=== PATIENT | female | born 1980 | race American Indian/Alaskan Native ===

== ENCOUNTER 2018-10-01 13:43 | Emergency (ER) | payer SELFPAY ==
[2018-10-01 13:50] VITALS: BP 153/86
[2018-10-01] MEDS ORDERED: TESSALON PERLES PO ONE (16:21)
--- NOTE | 2018-10-01 16:25 | Emergency Department Report ---
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 Patient reports cough is nonproductive. Past medical history of hypertension and asthma. Patient states she has been without an inhaler for years. She only have a flare door when her mother's. She normally don't wheeze with asthma flare. She normally becomes short of breath and incr eased coughing. 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 She denies fever, rhinorrhea, chest pain, myalgia, or abdominal pain. ED Review of Systems ROS: Stated complaint: ASTHMA/CHEST PAIN Other details as noted in HPI Constitutional: denies: chills, fever ENT: denies: ear pain, throat pain, congestion Respiratory: cough. denies: shortness of breath, wheezing Cardiovascular: denies: chest pain, palpitations Gastrointestinal: denies: abdominal pain, nausea, diarrhea Musculoskeletal: denies: myalgia Neurological: denies: headache, weakness, paresthesias Psychiatric: denies: anxiety, depression ED Past Medical Hx - Past Medical History Previous Medical History?: Yes Hx Hypertension: Yes Hx Asthma: Yes Additional medical history: anemia. kidney issue? - Surgical History Past Surgical History?: Yes Additional Surgical History: tubal ligation - Social History Smoking Status: Never Smoker Substance Use Type: None - Medications Home Medications: Home Medications Medication Instructions Recorded Confirmed Last Taken Type HYDROcodone/APAP 5-325 [[place] 1 - 2 each PO Q6HR PRN #10 tablet 07/14/18 Unknown Rx 5/325] Ibuprofen [Motrin 800 MG tab] 800 mg PO Q8HR PRN #20 tablet 07/14/18 Unknown Rx Metaxalone [Skelaxin] 800 mg PO TID #10 tablet 07/14/18 Unknown Rx ALBUTEROL Inhaler(NF) [VENTOLIN 1 puff IH Q4-6H PRN #1 inha 10/01/18 Unknown Rx Inhaler(NF)] Benzonatate [Tessalon Perle] 100 mg PO TID PRN #30 capsule 10/01/18 Unknown Rx Prednisone [predniSONE 10 mg 10 mg PO .TAPER #1 tab.ds.pk 10/01/18 Unknown Rx (6-Day Pack, 21 Tabs)] Minor Respiratory Exam - Exam General: Vital signs noted. No distress. Alert and acting appropriately. HEENT: Yes Moist Mucous Membranes, No Pharyngeal Erythema, No Pharyngeal Exudates, No Rhinorrhea, No Conjuctival Injection, No Frontal Tenderness, No Maxillary Tenderness Ear: Neither TM Bulge, Neither TM Erythema, Neither EAC Pain, Neither EAC Discharge Neck: Yes Supple, No Adenopathy Lungs: Yes Good Air Exchange, Yes Cough, No Wheezes, No Ronchi, No Stridor, No Labored Respirations, No Retractions, No Use of Accessory Muscles, No Other Abnormal Lung Sounds Heart: Yes Regular, No Murmur Abdomen: Yes Normal Bowel Sounds, No Tenderness, No Peritoneal Signs Skin: No Rash, No Edema Neurologic: Alert and oriented, no deficits. Musculoskeletal: Unremarkable. ED Course Vital Signs 10/01/18 13:47 Temperature 97.5 F L Pulse Rate 97 H Respiratory 22 Rate Blood Pressure 153/86 O2 Sat by Pulse 100 Oximetry ED Medical Decision Making - Radiology Data Radiology results: report reviewed FINAL REPORT EXAM: XR CHEST ROUTINE 2V HISTORY: cough COMPARISON: None. TECHNIQUE: Frontal and lateral views of the chest. FINDINGS: The cardiomediastinal silhouette is normal in appearance. The lungs are clear without focal consolidation. There is no pleural effusion or pneumothorax. There is no acute soft tissue or osseous abnormality. IMPRESSION: No acute cardiopulmonary disease. - Medical Decision Making 38 y.o. female that presents with a cough for 2 months. History of Asthma and HTN. Noncompliant with medication. She ran out of albuterol inhaler years ago due to cost. Patient examined by me and in no distress. Vitals stable. Given duoneb treatment once and prednisone 60 mg po once in ER. Chest x-ray obtained and dictated by radiologist. No acute cardiopulmonary disease. Asthma exacerbation, Start albuterol, benzonatate, and prednisone taper. Discharged home stable. Follow-up with outside medical clinic or [facility] clinic for further refills. Return to work tomorrow. Critical care attestation.: If time is entered above; I have spent that time in minutes in the direct care of this critically ill patient, excluding procedure time. ED Disposition Clinical Impression: Cough in adult Asthma exacerbation Qualifiers: Asthma severity: mild Asthma persistence: intermittent Qualified Code(s): J45.21 - Mild intermittent asthma with (acute) exacerbation Disposition: TO HOME OR SELFCARE Is pt being admited?: No Does the pt Need Aspirin: No Condition: Stable Instructions: Asthma (ED) Additional Instructions: It is important to use inhaler or have active albuterol inhaler and avoiding asthma triggers. Complete full course of prednisone steroids as prescribed. Follow up with Primary Care Provider in 24-72 hours. Prescriptions: ALBUTEROL Inhaler(NF) [VENTOLIN Inhaler(NF)] 1 puff IH Q4-6H PRN #1 inha PRN Reason: Shortness Of Breath Benzonatate [Tessalon Perle] 100 mg PO TID PRN #30 capsule PRN Reason: Cough Prednisone [predniSONE 10 mg (6-Day Pack, 21 Tabs)] 10 mg PO .TAPER #1 tab.ds.pk Referrals: [facility] [Outside] - 3-5 Days [facility] [Outside] - 3-5 Days [facility] [Outside] - 3-5 Days Forms: Work/School Release Form(ED) Time of Disposition: 17:21
--- NOTE | 2018-10-01 17:04 | XRay Report ---
FINAL REPORT EXAM: XR CHEST ROUTINE 2V HISTORY: cough COMPARISON: None. TECHNIQUE: Frontal and lateral views of the chest. FINDINGS: The cardiomediastinal silhouette is normal in appearance. The lungs are clear without focal consolidation. There is no pleural effusion or pneumothorax. There is no acute soft tissue or osseous abnormality. IMPRESSION: No acute cardiopulmonary disease.
[2018-10-01] MEDS ORDERED: DELTASONE PO ONE (17:14)
== END 2018-10-01 18:00 | disposition home or self-care (01) ==
LOC: ED 13:43
DX: J45.901 Unspecified asthma with (acute) exacerbation (principal); I10 Essential (primary) hypertension; Z88.5 Allergy status to narcotic agent; Z88.1 Allergy status to other antibiotic agents; Z86.2 Personal history of diseases of the blood and blood-forming organs and certain disorders involving the immune mechanism; Z98.51 Tubal ligation status
CPT/HCPCS: 71046; 99283; J7512

== ENCOUNTER 2018-11-17 10:50 | Emergency (ER) | payer OTHER ==
[2018-11-17] MEDS ORDERED: TORADOL IM ONE (12:33)
[2018-11-17] MEDS ORDERED: VALIUM PO ONE (12:34)
--- NOTE | 2018-11-17 12:35 | Emergency Department Report ---
HPI - General Chief Complaint: Back Pain/Injury Time Seen by Provider: 11/17/18 12:27 - HPI HPI: 38-year-old -[place] female presents to the emergency department with a complaint of a few days of low back pain. 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 She denies any midline pain. She denies any problems with bowel or bladder, numbness or paresthesias or any neurological deficits. She herself says that it feels like a muscle spasm. She was given some ibuprofen at work with some mild relief but woke up very stiff. She is able to ambulate. S he denies any other past medical history. ED Past Medical Hx - Past Medical History Hx Hypertension: Yes Hx Asthma: Yes Additional medical history: anemia. kidney issue? - Surgical History Additional Surgical History: tubal ligation - Social History Smoking Status: Never Smoker Substance Use Type: None - Medications Home Medications: Home Medications Medication Instructions Recorded Confirmed Last Taken Type HYDROcodone/APAP 5-325 [[place] 1 - 2 each PO Q6HR PRN #10 tablet 07/14/18 Unknown Rx 5/325] Metaxalone [Skelaxin] 800 mg PO TID #10 tablet 07/14/18 Unknown Rx RX: Ibuprofen [Motrin 800 MG tab] 800 mg PO Q8HR PRN #20 tablet 07/14/18 Unknown Rx Prednisone [predniSONE 10 mg 10 mg PO .TAPER #1 tab.ds.pk 10/01/18 Unknown Rx (6-Day Pack, 21 Tabs)] RX: ALBUTEROL Inhaler(NF) 1 puff IH Q4-6H PRN #1 inha 10/01/18 Unknown Rx [VENTOLIN Inhaler(NF)] RX: Benzonatate [Tessalon Perle] 100 mg PO TID PRN #30 capsule 10/01/18 Unknown Rx diazePAM TAB [Valium] 5 mg PO TID PRN #10 tablet 11/17/18 Unknown Rx ED Review of Systems ROS: Stated complaint: BACK PAIN Other details as noted in HPI Comment: All other systems reviewed and negative Constitutional: denies: chills, fever Eyes: denies: eye pain, vision change ENT: denies: ear pain, throat pain Respiratory: denies: cough, shortness of breath Cardiovascular: denies: chest pain, palpitations Gastrointestinal: denies: abdominal pain, vomiting Genitourinary: denies: dysuria, discharge Musculoskeletal: back pain. denies: arthralgia Skin: denies: rash, lesions Neurological: denies: headache, numbness, paresthesias Physical Exam - Physical Exam Vital Signs: Vital Signs 11/17/18 10:53 Temperature 98.1 F Pulse Rate 130 H Respiratory 98 H Rate Physical Exam: GENERAL: The patient is well-developed well-nourished. HEENT: Normocephalic. Atraumatic. Patient has moist mucous membranes. EYES: Extraocular motions are intact. NECK: Supple. Trachea is midline. CHEST/LUNGS: Clear to auscultation. There is no respiratory distress noted. HEART/CARDIOVASCULAR: Regular. There is no tachycardia. There is no obvious murmur. ABDOMEN: Abdomen is soft, nontender. Patient has normal bowel sounds. There is no abdominal distention. SKIN: Skin is warm and dry. NEURO: The patient is awake, alert, and oriented. The patient is cooperative. The patient has no focal neurologic deficits. The patient has normal speech. MUSCULOSKELETAL: There is no tenderness or deformity. There is no limitation range of motion. There is no evidence of acute injury. BACK: No midline thoracic or lumbar tenderness to palpation, step-off or deformity. There is reproducible bilateral paraspinal muscle tenderness to the lumbar and lower thoracic regions. ED Course Vital Signs 11/17/18 10:53 Temperature 98.1 F Pulse Rate 130 H Respiratory 98 H Rate ED Medical Decision Making - Medical Decision Making This patient presents to the emergency department with a few days of lower back pain. She has no midline pain or tenderness to palpation. There was no obvious trauma. She denies any problems with bowel or bladder, numbness or paresthesias or neurological deficits. For these reasons I feel that she does not require any imaging of the spine at this time. She appears low suspicion for any of the emergent back condition such as cauda equina, epidural abscess or cord compression syndrome. She has been given anti-inflammatories and muscle relaxers and referrals for orthopedists. She will return to the ER with any worsening of her symptoms or any acute distress. - Differential Diagnosis muscle spasm, lumbar strain, contusion Critical Care Time: No Critical care attestation.: If time is entered above; I have spent that time in minutes in the direct care of this critically ill patient, excluding procedure time. ED Disposition Clinical Impression: Muscle spasm Back pain Qualifiers: Back pain location: low back pain Chronicity: unspecified Back pain laterality: bilateral Sciatica presence: without sciatica Qualified Code(s): M54.5 - Low back pain Disposition: DC-01 TO HOME OR SELFCARE Is pt being admited?: No Condition: Stable Instructions: Muscle Spasm (ED), Back Pain (ED) Additional Instructions: Please follow up with a primary care physician in the next few days. I'm giving you a referral for a orthopedic group in case she needs to follow-up guarding or back pains. Return to the emergency Department if any worsening of your symptoms including any development of problems with urination or bowel movements, development of numbness, difficulty with walking, if any acute distress. You have been prescribed a medication that can be sedating. Therefore, this medication cannot be taken prior to driving, working, being responsible for children, and cannot be mixed with alcohol of any quantity. Prescriptions: diazePAM TAB [Valium] 5 mg PO TID PRN #10 tablet PRN Reason: Muscle Spasm Referrals: [facility] [Provider Group] - 2-3 Days Forms: Work/School Release Form(ED) Time of Disposition: 12:41
== END 2018-11-17 13:25 | disposition home or self-care (01) ==
LOC: ED 10:50
DX: M62.830 Muscle spasm of back (principal); M54.5 Low back pain; I10 Essential (primary) hypertension; J45.909 Unspecified asthma, uncomplicated; D64.9 Anemia, unspecified; Z98.51 Tubal ligation status; Z88.1 Allergy status to other antibiotic agents; Z88.6 Allergy status to analgesic agent
CPT/HCPCS: 96372; 99282; J1885